=== PATIENT | female | born 1985 | race Caucasian/White ===

== ENCOUNTER 2017-11-04 16:46 | Inpatient (IN) | payer OTHER ==
[~2017-11-04] VITALS: Ht 154.9 cm; Wt 193.0 kg
[~2017-11-04 16:46] MED LIST: ACIDOPHILUS1 EAC2; OBSTETRIX EC C1 EACH
[2017-11-04] MEDS ORDERED: FE C TABLET1 EACH PO (20:14)
== END 2017-11-07 13:54 | DRG 775 ==
LOC: LDR 16:46 → OB/GYN 11-05 15:07
PROC: 10E0XZZ Delivery of Products of Conception, External Approach (ICD-10-PCS; principal; 2017-11-05)
PROC: 10907ZC Drainage of Amniotic Fluid, Therapeutic from Products of Conception, Via Natural or Artificial Opening (ICD-10-PCS; 2017-11-05)
PROC: 3E0P7VZ Introduction of Hormone into Female Reproductive, Via Natural or Artificial Opening (ICD-10-PCS; 2017-11-05)
PROC: 3E033VJ Introduction of Other Hormone into Peripheral Vein, Percutaneous Approach (ICD-10-PCS; 2017-11-05)
PROC: 4A033R1 Measurement of Arterial Saturation, Peripheral, Percutaneous Approach (ICD-10-PCS; 2017-11-05)
PROC: 4A1HXCZ Monitoring of Products of Conception, Cardiac Rate, External Approach (ICD-10-PCS; 2017-11-05)
DX: O24.420 Gestational diabetes mellitus in childbirth, diet controlled (principal); Z3A.37 37 weeks gestation of pregnancy; Z37.0 Single live birth

== ENCOUNTER 2017-12-10 06:44 | Day surgery (SDC) | payer OTHER ==
[~2017-12-10 06:44] MED LIST changes: +FE C TABLET1 EACH PO
[2017-12-10] MEDS ORDERED: CODE1TAB37 PO (08:46)
== END 2017-12-10 11:00 | disposition home or self-care (01) ==
LOC: CIR.AMB 06:44
DX: Z30.2 Encounter for sterilization (principal); Z64.1 Problems related to multiparity